=== PATIENT | male | born 1965 | race Caucasian/White ===

== ENCOUNTER → 2019-12-09 15:21 | Outpatient (BNVA) | payer OTHER, SELFPAY | PROVIDERS: Family Provider Nurse Practitioner; PCP Nurse Practitioner; Referring Provider Emergency Medicine Emergency Medical Services; Visit Provider Specialist | DX: M25.512 Pain in left shoulder (principal) | CPT/HCPCS: 73030 ==

== ENCOUNTER 2019-12-20 13:38 | Outpatient (CLI) | payer OTHER, SELFPAY ==
--- NOTE | 2019-12-20 13:45 | MR_ITS ---
WS: [id number] MRI LEFT SHOULDER NONCONTRAST TECHNIQUE: Sagittal T2, coronal T1, T2 and proton density imaging. Axial gradient PDE imaging. CLINICAL INFORMATION: M25.512 Pain in left shoulder COMPARISON: None. FINDINGS: Moderate degenerative arthritis at the AC joint with mild edema. Mild synovial thickening. Subacromia l space is preserved. No significant subacromial/subdeltoid fluid. Normal supraspinatus. Normal infra spinatus. Normal teres minor and subscapularis. Subscapularis is normal. Medial subluxation of the biceps tendon in the bicipital groove proximally. Atrophic biceps tendon. Distal biceps tendon is intact. Glenoid labrum is grossly intact. Intra-artic ular biceps tendon is difficult to visualize and ill-defined which may be due to chronic partial tear . MR/MR shoulder LT wo con* [id number] IMPRESSION: 1. Moderate degenerative arthritis at the AC joint with mild edema. Subacromia l space is preserved. 2. Rotator cuff is normal. 3. Diminutive atrophic biceps tendon with medial subluxation in the proximal b icipital groove. Distal biceps tendon appears intact. 4. 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 No edema.
== END 2019-12-20 13:39 | disposition home or self-care (01) ==
LOC: RADSHAW 13:42
PROVIDERS: PCP Emergency Medicine Emergency Medical Services; Visit Provider Specialist
DX: M19.012 Primary osteoarthritis, left shoulder (principal)
CPT/HCPCS: 73221

== ENCOUNTER → 2020-02-08 16:05 | Outpatient (BNVA) | payer OTHER, SELFPAY | PROVIDERS: PCP Emergency Medicine Emergency Medical Services; Visit Provider Specialist | DX: Z20.828 Contact with and (suspected) exposure to other viral communicable diseases (principal); Z01.812 Encounter for preprocedural laboratory examination | CPT/HCPCS: 87635 ==

== ENCOUNTER 2020-02-14 11:20 | Day surgery (SDC) | payer OTHER, SELFPAY ==
[2020-02-13 10:44] VITALS: BMI 41.5
[2020-02-14] VITALS (7 sets, daily range): BP systolic 97–168; BP diastolic 48–102; PULSE 66–97; RESP 18–27; TEMP 36.1–36.2; O2SAT 87–99
--- NOTE | 2020-02-14 11:45 | P.HPUD_ITS ---
Surgery/Procedure H&P Update DATE OF PROCEDURE: February 14, 2020 DATE H&P PERFORMED: 01/16/20 H&P UPDATE INFORMATION: I have reviewed H&P completed within last 30 days, I have examined patient prior to procedure and H&P is in [facility] EMR on date indicated PREOP DIAGNOSIS: Biceps tendonitis with impingement left shoulder PLANNED PROCEDURE: Operation Date: 02/14/20 12:50 Proposed Procedures p left open Bicep Tenodesis 15046 M67.912(Left) - Radha Omalley MD Left Acromioplasty Related Problem List Diagnoses (1) Biceps tendonitis on left: (2) Tendinopathy of left rotator cuff: (3) Impingement syndrome of left shoulder:
--- NOTE | 2020-02-14 12:09 | ANES.PREANE2 ---
Pre-Anesthetic Assessment Pre-Anesthetic Assessment: Height/Weight: Height 1.78 m Weight 131.542 kg Temp Pulse Resp BP Pulse Ox 97 F L 88 18 168/102 99 02/14/20 11:41 02/14/20 11:41 02/14/20 11:41 02/14/20 11:41 02/14/20 11:41 Preop Diagnosis: Biceps tendonitis with impingement left shoulder Proposed Procedure: Operation Date: 02/14/20 12:50 Proposed Procedures p left open Bicep Tenodesis 15189 M67.912(Left) - Radha Omalley MD Familial anesthetic complications: None Was Beta Emily taken within 24 hours: N/A Last intake: Intake Last Liquid Date 02/13/20 Last Liquid Time 20:00 Last Solid Date 02/13/20 Last Solid Time 20:00 Social: Social History: Tobacco and No alcohol Exam: Pre-Anes Outpt Exam: alert, oriented x 3, clear to auscultation bilaterally and regular rate & rhythm Airway: Cervical ROM: WNL MP: 4 Dentition: False Additional comments: Large tongue, large neck, possible difficult airway, will have glidescope CV/HEM: CV/HEM: HTN Metabolic: Metabolic: DM, Hyperlipidemia and Morbid obesity Anesthetic Plan: ASA status: 3 Anesthesia: General and Regional (specify below) (per surgeon request) Risk of > 500 ml blood loss (7ml/kg in children): No PFSH Anesthesia PFSH: Social History Smoking and tobacco status: current every day smoker Data Anesthesia Cardiac Studies: No Data to Display
[2020-02-14 12:11] LABS: Glucose Point of Care 158 mg/dL (70-110)
[2020-02-14] MEDS: sodium chloride 0.9% 1,000 ML 30 ML IV (12:11)
[2020-02-14] MEDS: midazolam 1 mg/mL INJ 5 ML 5 MG IVP (12:33)
--- NOTE | 2020-02-14 12:38 | ANES.PROC ---
Anesthesia Procedures Procedure/Date: 02/14/20 Nerve Block ^: Nerve Block 1: Main Anesthesia: general anesthesia Time Out Performed: Yes Consent: requested by attending/covering physician, from patient, risks and benefits reviewed and patient agrees to proceed Nerve block location: interscalene (L) Anesthesia monitors applied: pulse oximetry, EKG, BP cuff and oxygen Nerve block position: semi sitting Anesthetic Used: ropivicaine 0.5% and with decadron (4 mg) Amount of anesthesia used (mL): 20 Ultrasound used to: recognize landmarks Nerve Stimulator Used?: No Interscalene/Femoral BLK: 2 stimuplex 22 g needle used for position and inplane approach, visualize local anesthetic spread and no vascular puncture identified Injection: neg aspiration of heme Patient Tolerated Procedure: well and no complications Complications: none
[2020-02-14] MEDS: vancomycin 1,000 MG in sodium chloride 0.9% 250 ML 250 MG IV (12:45)
[2020-02-14] MEDS: ceFAZolin 1,000 mg SDV 1000 MG (13:59)
[2020-02-14 15:25] LABS: Glucose Point of Care 157 mg/dL (70-110)
--- NOTE | 2020-02-14 16:01 | P.OP_ITS ---
Operative Report Date of procedure: February 14, 2020 Pre-op Diagnosis: Biceps tendonitis with impingement left shoulder Post-op Diagnosis: Rotator cuff tendinitis left shoulder with significant impingement Post-op Findings: Intact appearing biceps tendon without significant inflammation, severe impingement. Adhesive capsulitis. Procedure Done: Left shoulder diagnostic arthroscopy with open acromioplasty and shoulder manipulation Implants: None Pathology: none sent Surgeon: Radha Omalley Digital Pre Press Operator: [facility] operating room technicians Anesthesia: General (Intubated, ASA 3 with pre-operative interscalene block) Estimated blood loss (mL): 10 IV fluids (mL): 1,000 Urine output (mL): 0 Urine output: No Aguilera Complications: None Findings: Significant impingement with adhesive capsulitis with no evidence of significant biceps tendinitis Condition: stable Disposition: PACU (To PACU then home) Brief History: This 54-year-old gentleman presented with complaints of severe left shoulder pain. Previously, he had undergone a biceps tenodesis of the right shoulder, and he was concerned that he needed the same surgical procedure. Preoperative evaluation demonstrated that the patient did not have a rotator cuff tear. The biceps tendon by MRI was diminutive, and the rotator cuff was normal. The patient wished to proceed with operative intervention. Risks and complications were discussed with him. Plans were for arthroscopic evaluation followed by open acromioplasty and possible biceps tenodesis. Procedure: The patient was brought to the operating theater and underwent general intubated anesthesia, ASA 3, with interscalene block. The patient was placed in a beachchair position and subsequently the left upper extremity was prepped and draped in the usual fashion utilizing DuraPrep. The arm was draped free. A zaid gical pause was performed prior to commencement of the surgical procedure. At the time of the surgical pause, we confirmed the site and side of surgery as well as administration of appropriate preoperative antibiotics vancomycin 1 g. MRI was also reviewed at that time. Following the surgical pause, initially, an arthroscope was placed into the left shoulder. A posterior portal was utilized. Evaluation demonstrated that the biceps tendon did appear intact within the joint. There was no evidence of significant inflammation. Following the diagnostic arthroscopic evaluation, determination was made to proceed with an open acromioplasty and evaluation of the biceps tendon at the biceps groove as well as evaluation of the rotator cuff. Also, during the exam under anesthesia, the shoulder was noted to be quite stiff and plans were made for a manipulation. An incision was made at approximately the level of the mid acromion slightly distal to the acromioclavicular joint extending across the anterolateral corner of the acromion and distally as necessary. Care was taken to avoid injury to the axillary nerve by limiting the distal extent of the incision. Dissection continued through skin and soft tissues using a scalpel. Hemostasis was obtained using electrocautery. Soft tissues were elevated off the acromion. An acromioplasty was then accomplished using a combination of a saw and a power rasp. Prior to the acromioplasty, there was noted to be significant impingement and very thickened bursal tissue. A bursectomy was performed. With this, we were able to remove compression caused by the acromion. The rotator cuff was then evaluated to look for tears. Evaluation of the rotator cuff demonstrated there was no evidence of rotator cuff tear. Palpation over the biceps groove demonstrated a full groove with intact biceps tendon. At that time, the decision was made to not perform biceps tenodesis. It was felt that the patient's primary symptoms were likely caused from his impingement. Therefore, plan was to address the impingement and if he continues to have symptoms to consider possible biceps tenodesis at that time. Additionally, a manipulation was accomplished uneventfully. The wound was irrigated and closure was accomplished with 0 Vicryl in the capsular tissues over the acromion and down into the deltoid muscle. 3-0 Monocryl was used to close the subcutaneous tissues followed by 4-0 Monocryl subcuticular closure. This was followed by Dermabond, Steri-Strips, Telfa, and Tegaderm. The patient was placed in a sling and was returned to the recovery room in satisfactory condition. The patient will be discharged to home to follow up with me as scheduled. There were no complications and no specimens. Associated Problem List Diagnoses (1) Impingement syndrome of left shoulder: (2) Biceps tendonitis on left: (3) Tendinopathy of left rotator cuff: (4) Osteoarthritis of left acromioclavicular joint: (5) Adhesive capsulitis of left shoulder:
--- NOTE | 2020-02-14 16:29 | ANE.PACU2 ---
Inpatient post-anesthesia follow up: Airway intact: Yes Vital signs: Temperature 97 F Pulse Rate 74 Respiratory Rate 18 Blood Pressure 115/82 Pulse Oximetry 99 Oxygen Delivery Me thod Room Air Oxygen Flow Rate 4 Fraction of Inspir ed Oxygen Hydration adequate: Yes Nausea and vomiting: No Pain level: 2 Mental status: Baseline
== END 2020-02-14 16:10 | disposition home or self-care (01) ==
PROVIDERS: PCP Emergency Medicine Emergency Medical Services; Visit Provider Specialist
PROC: (CPT 23430; principal; 2020-02-14 12:50)
PROC: (CPT 23130; 2020-02-14 12:50)
DX: M75.22 Bicipital tendinitis, left shoulder (principal); M25.812 Other specified joint disorders, left shoulder; M75.42 Impingement syndrome of left shoulder; M75.02 Adhesive capsulitis of left shoulder; M19.012 Primary osteoarthritis, left shoulder; I10 Essential (primary) hypertension; E11.9 Type 2 diabetes mellitus without complications; E78.5 Hyperlipidemia, unspecified; E66.01 Morbid (severe) obesity due to excess calories; Z68.41 Body mass index [BMI] 40.0-44.9, adult; F17.210 Nicotine dependence, cigarettes, uncomplicated
CPT/HCPCS: 23130; 12345; 36416; 64415; 76942; 82962; 96365; 96374; J0131; J0330; J0690; J1100; J1885; J2250; J2370; J2405; J2704; J2710; J2795; J3010; J3370; J3490; J7030; J7050

== ENCOUNTER → 2021-04-23 10:32 | Outpatient (BNVA) | payer MEDICARE, OTHER, SELFPAY | PROVIDERS: PCP Emergency Medicine Emergency Medical Services; Visit Provider Nurse Practitioner Family | DX: Z20.822 Contact with and (suspected) exposure to COVID-19 (principal) | CPT/HCPCS: 87635 ==

== ENCOUNTER → 2021-09-07 13:40 | Outpatient (BNVA) | payer OTHER, SELFPAY | PROVIDERS: PCP Emergency Medicine Emergency Medical Services; Visit Provider Surgery | DX: Z12.11 Encounter for screening for malignant neoplasm of colon (principal) | CPT/HCPCS: 99203 ==

== ENCOUNTER 2021-11-26 05:40 | Day surgery (SDC) | payer OTHER, SELFPAY ==
[2021-11-23 09:45] VITALS: BMI 40.4
[2021-11-26 06:02] VITALS: BP 155/90; PULSE 106; RESP 18; TEMP 36.6; O2SAT 100
[2021-11-26] MEDS: sodium chloride 0.9% 1,000 ML 30 ML IV (06:09)
[2021-11-26 06:12] LABS: Glucose Point of Care 159 mg/dL (70-110)
--- NOTE | 2021-11-26 07:02 | P.HP_ITS ---
Providers/Chief Complaint Primary Care Provider: Jagdish Gutierrez DO Chief Complaint: encounter for screening for malignant History of Present Illness Aric Jones is a 56 year old male here for colonoscopy Medications/Allergies Home Medications Medication Instructions Recorded Confirmed Last Taken Type alogliptin 25 mg tablet 25 mg PO DAILY 12/09/19 11/26/21 11/25/21 History atorvastatin 80 mg tablet 80 mg PO DAILY 12/09/19 11/26/21 11/25/21 History glipizide 10 mg tablet 10 mg PO DAILY 12/09/19 11/26/21 11/25/21 History insulin glargine 100 unit/mL 36 unit SUBCUT DAILY 12/09/19 11/26/21 11/25/21 History subcutaneous solution (Lantus U-100 Insulin) lisinopril 20 mg tablet 20 mg PO DAILY 12/09/19 11/26/21 11/25/21 History metformin 1,000 mg tablet 1,000 mg PO DAILY 12/09/19 11/26/21 11/25/21 History pregabalin 75 mg capsule 75 mg PO DAILY 12/09/19 11/26/21 11/25/21 History sildenafil 100 mg tablet 1 tab PO PRN PRN Sexual Activity 05/17/21 11/26/21 Unknown History Allergies Allergy/AdvReac Type Severity Reaction Status Date / Time cyclobenzaprine Allergy ADR-Blurry Verified 11/26/21 05:56 [From Flexeril] Vision naproxen AdvReac Severe ADR-Blurry Verified 11/26/21 05:56 Vision PFSH Acute PFSH: Medical History Depressive disorder Primary hypertension PTSD (post-traumatic stress disorder) Type 2 diabetes mellitus Surgical History Hx of shoulder surgery right rotator cuff repair. 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
--- NOTE | 2021-11-26 07:02 | ANES.PREANE2 ---
Pre-Anesthetic Assessment Height/Weight: Height 1.8 m Weight 131.542 kg Temp Pulse Resp BP Pulse Ox O2 Del Method 98 F 106 H 18 155/90 100 11/26/21 06:02 11/26/21 06:02 11/26/21 06:02 11/26/21 06:02 11/26/21 06:02 11/26/21 06:02 Preop Diagnosis: Biceps tendonitis with impingement left shoulder Operation Date: 11/26/21 07:00 Proposed Procedures p Colonoscopy 47283,Z12.11(Not Applicable) - Feliberto Washington DO Familial anesthetic complications: none Was Beta Emily taken within 24 hours: N/A Was Clonidine taken within 24 hours: N/A Last intake: Intake Last Liquid Date 11/25/21 Last Liquid Time 22:00 Last Solid Date 11/24/21 Last Solid Time 00:00 Last Intake: 00:00 Social Tobacco (2 ppd) and No alcohol Exam alert and oriented x 3 Airway Submandibular: within normal limits Cervical ROM: within normal limits Mallampati: Class I Dentition: false History/ROS No significant history except as noted Pulmonary Chronic Obstructive Pulmonary Disease CV/HEM Hypertension None reported Hepatic None reported Metabolic Diabetes Mellitus, Hyperlipidemia and Morbid Obesity [facility] [place] None reported Neuropsych Seizure (seeing neurologist for seizure-like activity after coughing fits.) Anesthetic Plan ASA status: 3 Anesthesia: Anesthesia Evaluation and MAC Medications/Allergies Home Medications Medication Instructions Recorded Confirmed Last Taken Type alogliptin 25 mg tablet 25 mg PO DAILY 12/09/19 11/26/21 11/25/21 History atorvastatin 80 mg tablet 80 mg PO DAILY 12/09/19 11/26/21 11/25/21 History glipizide 10 mg tablet 10 mg PO DAILY 12/09/19 11/26/21 11/25/21 History insulin glargine 100 unit/mL 36 unit SUBCUT DAILY 12/09/19 11/26/21 11/25/21 History subcutaneous solution (Lantus U-100 Insulin) lisinopril 20 mg tablet 20 mg PO DAILY 12/09/19 11/26/21 11/25/21 History metformin 1,000 mg tablet 1,000 mg PO DAILY 12/09/19 11/26/21 11/25/21 History pregabalin 75 mg capsule 75 mg PO DAILY 12/09/19 11/26/21 11/25/21 History sildenafil 100 mg tablet 1 tab PO PRN PRN Sexual Activity 05/17/21 11/26/21 Unknown History Allergies Allergy/AdvReac Type Severity Reaction Status Date / Time cyclobenzaprine Allergy ADR-Blurry Verified 11/26/21 05:56 [From Flexeril] Vision naproxen AdvReac Severe ADR-Blurry Verified 11/26/21 05:56 Vision Current Medications Generic Name Dose Route Start Last Admin Trade Name Freq PRN Reason Stop Dose Admin Sodium Chloride 1,000 mls @ 30 mls/hr 11/26/21 06:00 11/26/21 06:09 Sodium Chloride 0.9% IV 11/27/21 05:59 30 mls/hr .Q24H JAMIE Administration PFSH Anesthesia Medical History Depressive disorder Primary hypertension PTSD (post-traumatic stress disorder) Type 2 diabetes mellitus Surgical History Hx of shoulder surgery right rotator cuff repair. Shrapnel removed 1990 Social History Smoking and tobacco status: current every day smoker Data Anesthesia Cardiac Studies: No Data to Display
[2021-11-26 07:25] VITALS: BP 115/64; PULSE 92; RESP 21; TEMP 36.3; O2SAT 97
[2021-11-26 07:36] VITALS: BP 116/66; PULSE 90; RESP 18; O2SAT 96
--- NOTE | 2021-11-26 07:38 | ANE.PACU2 ---
Inpatient post-anesthesia follow up: Airway intact: Yes Vital signs: Temperature 97.4 F Pulse Rate 90 Respiratory Rate 18 Blood Pressure 116/66 Pulse Oximetry 96 Oxygen Delivery Me thod Room Air Oxygen Flow Rate Fraction of Inspir ed Oxygen Hydration adequate: Yes Nausea and vomiting: No Pain level: 1 Mental status: Baseline
== END 2021-11-26 07:50 | disposition home or self-care (01) ==
PROVIDERS: PCP Emergency Medicine Emergency Medical Services; Visit Provider Surgery
PROC: 0DJD8ZZ Inspection of Lower Intestinal Tract, Via Natural or Artificial Opening Endoscopic (ICD-10-PCS; CPT 45378; principal; 2021-11-26 07:00)
DX: Z12.11 Encounter for screening for malignant neoplasm of colon (principal); I10 Essential (primary) hypertension; E11.9 Type 2 diabetes mellitus without complications; F17.210 Nicotine dependence, cigarettes, uncomplicated; Z79.4 Long term (current) use of insulin; Z79.84 Long term (current) use of oral hypoglycemic drugs; J44.9 Chronic obstructive pulmonary disease, unspecified; E78.5 Hyperlipidemia, unspecified; E66.01 Morbid (severe) obesity due to excess calories; Z68.41 Body mass index [BMI] 40.0-44.9, adult
CPT/HCPCS: 36416; 45378; 82962; J2704; J7030

== ENCOUNTER → 2021-12-09 07:47 | Outpatient (BNVA) | payer OTHER, SELFPAY | PROVIDERS: PCP Emergency Medicine Emergency Medical Services; Referring Provider Emergency Medicine Emergency Medical Services; Visit Provider Specialist | DX: R05.4 Cough syncope (principal); R55 Syncope and collapse | CPT/HCPCS: 95812; 95816 ==

== ENCOUNTER → 2022-06-28 08:41 | Outpatient (BNVA) | payer OTHER, SELFPAY | PROVIDERS: PCP Emergency Medicine Emergency Medical Services; Referring Provider Emergency Medicine Emergency Medical Services; Visit Provider Specialist | DX: R55 Syncope and collapse (principal); R05.4 Cough syncope; J44.9 Chronic obstructive pulmonary disease, unspecified; M51.16 Intervertebral disc disorders with radiculopathy, lumbar region; F17.218 Nicotine dependence, cigarettes, with other nicotine-induced disorders; F43.10 Post-traumatic stress disorder, unspecified; Y36.90XS War operations, unspecified, sequela | CPT/HCPCS: 99204 ==

== ENCOUNTER 2022-07-18 14:09 | Outpatient (CLI) | payer OTHER, SELFPAY ==
--- NOTE | 2022-07-18 14:30 | MR_ITS ---
WS: [id number] MRI LUMBAR SPINE NONCONTRAST TECHNIQUE: Sagittal T1, T2 and STIR imaging. Axial T1 and T2 imaging. 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 COMPARISON: MRI 2010 FINDINGS: Mild lumbar curve. No acute compression. No high-grade central canal stenosis. L1-L2: Normal. L2-L3: Mild annular bulging. Mild facet arthropathy. Spinal canal and foramen are patent. L3-L4: Mild annular bulging. Small bilateral foraminal protrusions with mild RIGHT greater than LEFT foraminal narrowing. Contact of the exiting L3 nerve roots bilaterally. Mild facet arthropathy. Mild central canal stenosis. L4-L5: Mild annular bulging. Slight effacement of ventral thecal sac. Mild central canal stenosis. En croachment traversing L5 nerve roots. Eccentric disc bulging with mild bilateral foraminal narrowing. Mild facet arthropathy. L5-S1: Mild disc bulging with slight effacement of ventral thecal sac. Moderate facet arthropathy. Mo derate RIGHT and mild LEFT foraminal narrowing. Moderate facet arthropathy. Adrenal glands are normal. Small LEFT renal cyst. Small disc osteophyte complex cervical spine on sco ut imaging with slight indentation on cervical cord at C5-C6. Mild central canal stenosis. MR/MR lumbar spine wo con* [id number] IMPRESSION: 1. Mild lumbar curve. No acute compression. 2. Small bilateral foraminal protrusions L3-L4 with mild bilateral foraminal n arrowing and slight impingement on the exiting RIGHT greater than LEFT L3 nerve roots similar to previous. 3. Mild central canal stenosis L3-L4 and L4-L5 worse at L3-L4 slightly progres sed compared to 2010. 4. Mild bilateral L4-L5 foraminal narrowing RIGHT greater than LEFT similar to previous. 5. Moderate RIGHT L5-S1 foraminal narrowing progressed. 6. Small disc osteophyte complex cervical spine on physical design engineer imaging with slight i ndentation on cervical cord at C5-C6. Mild central canal stenosis.
== END 2022-07-18 14:10 | disposition home or self-care (01) ==
PROVIDERS: PCP Emergency Medicine Emergency Medical Services; Visit Provider Specialist
DX: M51.16 Intervertebral disc disorders with radiculopathy, lumbar region (principal); M25.78 Osteophyte, vertebrae; M48.02 Spinal stenosis, cervical region; M48.061 Spinal stenosis, lumbar region without neurogenic claudication; N28.1 Cyst of kidney, acquired
CPT/HCPCS: 72148

== ENCOUNTER 2022-09-06 06:00 | Outpatient (RCR) | payer OTHER, SELFPAY | END 2022-10-06 23:59 | disposition home or self-care (01) | LOC: WPT 06:00 | PROVIDERS: Visit Provider Physician Assistant | DX: M54.50 Low back pain, unspecified (principal) | CPT/HCPCS: 97110; 97112; 97161; 97530 ==

== ENCOUNTER → 2022-09-13 13:14 | Outpatient (BNVA) | payer OTHER, SELFPAY | PROVIDERS: PCP Emergency Medicine Emergency Medical Services; Referring Provider Emergency Medicine Emergency Medical Services; Visit Provider Physician Assistant | DX: M51.16 Intervertebral disc disorders with radiculopathy, lumbar region (principal); M48.061 Spinal stenosis, lumbar region without neurogenic claudication | CPT/HCPCS: 72110; 99204 ==

== ENCOUNTER → 2022-09-27 14:55 | Outpatient (BNVA) | payer OTHER, SELFPAY | PROVIDERS: PCP Emergency Medicine Emergency Medical Services; Visit Provider Specialist | DX: F17.200 Nicotine dependence, unspecified, uncomplicated (principal); R05.4 Cough syncope; M51.16 Intervertebral disc disorders with radiculopathy, lumbar region; R55 Syncope and collapse | CPT/HCPCS: 99213 ==

== ENCOUNTER 2022-10-07 06:00 | Outpatient (RCR) | payer OTHER, SELFPAY | END 2022-11-05 23:59 | disposition home or self-care (01) | LOC: WPT 06:00 | PROVIDERS: PCP Emergency Medicine Emergency Medical Services; Visit Provider Physician Assistant | DX: M54.50 Low back pain, unspecified (principal) | CPT/HCPCS: 97110; 97112; 97530 ==

== ENCOUNTER → 2022-10-19 10:00 | Outpatient (BNVA) | payer OTHER, SELFPAY | PROVIDERS: PCP Emergency Medicine Emergency Medical Services; Referring Provider Physician Assistant; Visit Provider Anesthesiology Pain Medicine | DX: M51.36 Other intervertebral disc degeneration, lumbar region; M51.16 Intervertebral disc disorders with radiculopathy, lumbar region; M47.816 Spondylosis without myelopathy or radiculopathy, lumbar region | CPT/HCPCS: 99204 ==

== ENCOUNTER 2022-11-06 06:00 | Outpatient (RCR) | payer OTHER, SELFPAY | END 2022-12-06 23:59 | disposition home or self-care (01) | LOC: WPT 06:00 | PROVIDERS: PCP Emergency Medicine Emergency Medical Services; Visit Provider Physician Assistant | DX: M54.50 Low back pain, unspecified (principal) | CPT/HCPCS: 97110; 97112; 97530 ==